=== PATIENT | female | born 1990 | race Caucasian/White ===

== ENCOUNTER 2018-01-30 08:57 | Emergency (ER) | payer OTHER ==
[2018-01-30 09:31] LABS: #Lymphocytes 1.6 thou/uL (1.20-3.40); #Monocytes 0.9 thou/uL (0.11-0.59); #Neutrophils 8.8 thou/uL (1.40-6.50); %Basophils 0.3 % (0.0-1.0); %Eosinophils 0.3 % (0.0-10.0); %Lymphocytes 14.4 % (21.0-51.0); %Monocytes 7.7 % (0.0-10.0); %Neutrophils 77.3 % (42.0-75.0); Hemoglobin 14.3 g/dL (12.0-16.0); Mean Corpuscular HGB CONC 32.3 g/dL (32.0-36.0); Mean Corpuscular Hemoglobin 29.5 pg (27.0-31.0); Mean Corpuscular Volume 91.3 fL (78.0-98.0); Mean Platelet Volume 7.9 fL (7.4-10.4); Platelet Count 241 thou/uL (130-400); RBC Distribution Width 11.2 % (11.5-14.5); Red Blood Cell (RBC) Count 4.85 mill/uL (4.20-5.40); White Blood Cell (WBC) Count 11.4 thou/uL (4.8-10.8)
[2018-01-30 09:48] LABS: ALT (SGPT) 11 U/L (8-55); AST (SGOT) 20 U/L (5-34); Albumin 4.3 g/dL (3.5-5.0); Alkaline Phosphatase 75 U/L (40-150); Anion Gap 15 mmol/L (10-20); BUN (Urea Nitrogen) 16 mg/dL (7.0-18.7); Bilirubin, Total 0.6 mg/dL (0.2-1.2); Calc. Creatinine Clearance 0 mL/min (70-130); Calcium 9.6 mg/dL (7.8-10.44); Carbon Dioxide 25 mmol/L (22-29); Chloride 102 mmol/L (98-107); Estimated GFR-MDRD 84; Globulin 4.2 g/dL (2.4-3.5); Glucose 99 mg/dL (70-105); Lipase 8 U/L (8-78); Potassium 3.9 mmol/L (3.5-5.1); Protein, Total 8.5 g/dL (6.0-8.3); Sodium 138 mmol/L (136-145)
== END 2018-01-30 10:40 | disposition home or self-care (01) ==
LOC: ERS 08:57
DX: R19.7 Diarrhea, unspecified (principal); G43.909 Migraine, unspecified, not intractable, without status migrainosus; Z79.899 Other long term (current) drug therapy
CPT/HCPCS: 80053; 83690; 85025; 96360